=== PATIENT | female | born 1985 | race Two or more races ===

== ENCOUNTER 2020-07-19 14:05 | Day surgery (SDC) | payer OTHER | END 2020-07-20 06:04 | disposition home or self-care (01) | LOC: CIR.AMB 14:05 | PROVIDERS: ATTEND Obstetrics & Gynecology | DX: N84.0 Polyp of corpus uteri (principal) ==

== ENCOUNTER 2024-12-17 15:41 | Emergency (ER) | payer OTHER ==
[~2024-12-17] VITALS: Ht 157.5 cm; Wt 59.0 kg
[2024-12-17 15:45] VITALS: BP 114/80; O2SAT 100
[2024-12-17] MEDS ORDERED: ZYRTEC10 M3 (15:46)
[2024-12-17] MEDS ORDERED: METHYLPREDNISOLONE SOD SUCC 125 MG VIAL IV ONE (18:30)
[2024-12-17] MEDS ORDERED: BENZONATATE 100 MG CAPSULE PO ONE (18:30)
[2024-12-17] MEDS ORDERED: IPRATROPIUM/ALBUTEROL SULFATE 3 ML AMPUL.NEB IH SCH (18:30)
[2024-12-17] MEDS ORDERED: IPRATROPIUM/ALBUTEROL SULFATE 3 ML AMPUL.NEB IH ONE (18:45)
[2024-12-17] MEDS ORDERED: WATER FOR INJ.,BACTERIOSTATIC 30 ML VIAL IJ ONE (19:33)
[2024-12-17] MEDS ORDERED: METHYLPREDNISOLONE SOD SUCC 125 MG VIAL ONE (19:33)
[2024-12-17 20:35] LABS: HEMATOCRIT 38.6 % (36.0-45.00); HEMOGLOBIN 12.8 g/dL (12.0-15.00); MEAN CELL VOLUME 96.2 fL (80.00-100.00); MEAN CORPUSCULAR HEMOGLOBIN 31.8 pg (27.00-32.0); MEAN CORPUSCULAR HGB CONC 33.1 g/dl (32.0-36.0); PLATELET COUNT 285 K/uL (150-450); RED BLOOD COUNT 4.02 M/uL (4.00-6.00); RED CELL DISTRIBUTION WIDTH 12.5 % (11.5-14.5)
[2024-12-17 21:32] LABS: COVID-19 AG NEGATIVE (NEGATIVE)
[2024-12-17] MEDS ORDERED: IPRATROPIU0.2 MG/1 M IH (21:44)
[2024-12-17] MEDS ORDERED: GILTUSS COUGH-118 M1 PO (21:44)
[2024-12-17] MEDS ORDERED: ZITHROMAX TRI-500 MG PO (21:44)
[2024-12-17 21:46] LABS: INFLUENZA A AG NEGATIVE (NEGATIVE)
== END 2024-12-17 22:26 | disposition home or self-care (01) ==
LOC: ER 15:43
PROVIDERS: Preventive Medicine Public Health & General Preventive Medicine
DX: J45.901 Unspecified asthma with (acute) exacerbation (principal); Z20.822 Contact with and (suspected) exposure to COVID-19